=== PATIENT | female | born 1955 | race Caucasian/White ===

== ENCOUNTER 2018-03-09 14:38 | Emergency (ER) | payer OTHER ==
[2018-03-09 14:43] VITALS: BP 132/80
--- NOTE | 2018-03-09 15:20 | EDPHY ---
H & P Stated Complaint: Large black floater and flashed of light R eye since yesterday ;no pain Time Seen by Provider: 03/09/18 15:20 HPI/ROS: HPI CHIEF COMPLAINT: Right eye visual disturbance. HISTORY OF PRESENT ILLNESS: 62-year-old female, otherwise healthy does have a history of breast cancer lumpectomy and radiation, also has cataracts in her right eye, she is from [place] visiting family here. She presents emergency room with visual disturbances started yesterday. She states early yesterday she noticed a blackness in her right lateral vision. She states that it starts coming out from the right side of her visual field out of her right eye. This is been persistent. However today she developed black spots and floaters. She denies eye pain, denies central loss of vision, denies new headache. Denies chest pain or shortness of breath. Patient denies recent illness, denies trauma. Past Medical History: Denies significant medical history except for breast cancer, cataracts, wears corrective vision Past Surgical History: Lumpectomy Social History: Denies drugs alcohol tobacco. Visiting from [place]. Family History: Noncontributory ROS REVIEW OF SYSTEMS: 10 Systems were reviewed and negative with the exception of the elements mentioned in the history of present illness. Exam Constitutional triage nursing summary reviewed, vital signs reviewed, awake/ alert. Eyes EYE EXAM: RIGHT EYE: Extra movements intact, pupil equal round react to light, without dilatation a mid to visualize the back of her on high on funduscopic exam I do not appreciate acute abnormality. Lens appears to be in appropriate position. Good accommodation. Globes are soft. Nontender. No proptosis. Visual acuity reviewed by nursing staff. Please see documentation in chart. Ultrasound was obtained of the right eye done by myself at bedside. The lens appears appropriate position. I do not appreciate a vitreous hemorrhage. Globe soft, normal contour of the globe. Back the eye shows no evidence of retinal detachment. No newspaper sign. HENT normal inspection, atraumatic, moist mucus membranes, no epistaxis, neck supple/ no meningismus, no raccoon eyes. Respiratory clear to auscultation bilaterally, normal breath sounds, no respiratory distress, no wheezing. Cardiovascular rate normal, regular rhythm, no murmur, no edema, distal pulses normal. Gastrointestinal soft, non-tender, no rebound, no guarding, normal bowel sounds, no distension, no pulsatile mass. Genitourinary no CVA tenderness. Musculoskeletal no midline vertebral tenderness, full range of motion, no calf swelling, no tenderness of extremities, no meningismus, good pulses, neurovascularly intact. Skin pink, warm, & dry, no rash, skin atraumatic. Neurologic awake, alert and oriented x 3, AAOx3, moves all 4 extremities equally, motor intact, sensory intact, CN II-XII intact, normal cerebellar, normal vision, normal speech. Psychiatric normal mood/affect. Heme/Lymph/Immune no lymphadenopathy. Differential Diagnosis: Includes but is not limited to in a particular order vitreous hemorrhage, retinal detachment, glaucoma lens displacement Medical Decision Making: Plan for this patient will do a formal eye exam here in emergency room, check visual acuity, ultrasound the eye, I will consult Ophthalmology. Re-evaluation: Visual acuity 20/50 20/40 20/[address] Workman, with Ophthalmology would like to see the patient in the office today. The patient could be discharged directly from the emergency room to his office down the hallway. I discussed this with the patient she is comfortable this plan and would like to do this. Plan for discharge and will instruct her how to get his office. Source: Patient - Personal History Current Tetanus Diphtheria and Acellular Pertussis (TDAP): Yes - Medical/Surgical History Other PMH: healthy - Social History Smoking Status: Former smoker Constitutional: Initial Vital Signs Temperature (C) 36.4 C 03/09/18 14:41 Heart Rate 72 03/09/18 14:41 Respiratory Rate 16 03/09/18 14:41 Blood Pressure 132/80 H 03/09/18 14:41 O2 Sat (%) 98 03/09/18 14:41 O2 Delivery Mode Room Air Allergies/Adverse Reactions: No Known Allergies Allergy (Unverified 03/09/18 14:40) Home Medications: Medication Instructions Recorded Estradiol [VAGIFEM] 10 mcg VG 03/09/18 Departure - Departure Disposition: Home, Routine, Self-Care Clinical Impression: Visual disturbance Condition: Good Instructions: Blurred Vision (ED), Visual Floaters (ED) Additional Instructions: 1. Go directly to Ophthalmology. 2. It is in this hospital. 3. He will be seen by Dr. Dennys Workman Referrals: Dennys Workman MD [Medical Doctor] - As per Instructions
== END 2018-03-09 15:40 | disposition home or self-care (01) ==
DX: H53.8 Other visual disturbances (principal)